=== PATIENT | female | born 1985 | race Caucasian/White ===

== ENCOUNTER → 2017-10-06 12:46 | Outpatient (CLI) | payer MEDICAID, SELFPAY ==
[2017-10-06 13:38] LABS: HCT 30.4 % (36.0-46.0); Mean Corp. HGB Concentration 32.9 g/dL (32.0-36.0); Mean Corpuscular Hemoglobin 31.9 pg (27.0-33.0); Mean Corpuscular Volume 97.1 fL (80-95); Mean Platelet Volume 8.9 fL (8.0-11.0); Platelet Count 230 x1000/uL (130-400); RBC 3.13 m/cumm (4.00-5.20); RBC Distribution Width 13.2 % (11.7-14.6)
[2017-10-06 13:54] LABS: Glucose,1 Hr (Glucola) 83 mg/dL (80-140)
[2017-10-06 15:48] LABS: ALT 24 U/L (12-78); AST 13 U/L (15-37); Albumin 2.7 g/dL (3.4-5.0); Alkaline Phosphatase 74 U/L (46-116); Bilirubin, Direct 0.07 mg/dL (0.00-0.20); Bilirubin, Total 0.1 mg/dL (0.2-1.0); Total Protein 6.7 g/dL (6.4-8.2)
[2017-10-12 17:05] LABS: Result Summary NEGATIVE; Specimen WB Whole Blood
== END ==
PROVIDERS: Visit Provider Advanced Practice Midwife
DX: Z34.03 Encounter for supervision of normal first pregnancy, third trimester (principal); Z3A.28 28 weeks gestation of pregnancy; Z13.228 Encounter for screening for other metabolic disorders; R21 Rash and other nonspecific skin eruption
CPT/HCPCS: 36415; 80076; 82950; 85027; 81220

== ENCOUNTER → 2017-10-08 12:33 | Outpatient (CLI) | payer MEDICAID, SELFPAY ==
[2017-10-08 14:23] LABS: HCT 31.7 % (36.0-46.0); HGB 10.7 g/dL (12.0-15.5); Mean Corp. HGB Concentration 33.8 g/dL (32.0-36.0); Mean Corpuscular Hemoglobin 32.4 pg (27.0-33.0); Mean Corpuscular Volume 96.1 fL (80-95); Mean Platelet Volume 9.6 fL (8.0-11.0); Platelet Count 243 x1000/uL (130-400); RBC Distribution Width 13.2 % (11.7-14.6); White Blood Cell Count 10.39 k/cumm (4.4-10.8)
[2017-10-08 14:30] LABS: ALT 26 U/L (12-78); AST 16 U/L (15-37); Albumin 2.9 g/dL (3.4-5.0); Alkaline Phosphatase 85 U/L (46-116); Bilirubin, Direct 0.09 mg/dL (0.00-0.20); Bilirubin, Total 0.2 mg/dL (0.2-1.0); Total Protein 6.6 g/dL (6.4-8.2)
[2017-10-09 17:22] LABS: Bile Acids, Total 2 mcmol/L (<=10)
== END ==
PROVIDERS: Visit Provider Advanced Practice Midwife
DX: R21 Rash and other nonspecific skin eruption (principal)
CPT/HCPCS: 36415; 80076; 85027; 82239

== ENCOUNTER 2017-12-02 10:01 | Outpatient (CLI) | payer MEDICAID, SELFPAY | END 2017-12-02 10:21 | PROVIDERS: Visit Provider Advanced Practice Midwife | DX: O76 Abnormality in fetal heart rate and rhythm complicating labor and delivery (principal); Z3A.35 35 weeks gestation of pregnancy | CPT/HCPCS: 59025 ==

== ENCOUNTER 2017-12-02 11:48 | Outpatient (REF) | payer MEDICAID, SELFPAY | END 2017-12-02 12:08 | LOC: LBN 11:48 | PROVIDERS: Visit Provider Advanced Practice Midwife | DX: Z34.93 Encounter for supervision of normal pregnancy, unspecified, third trimester (principal); Z36.85 Encounter for antenatal screening for Streptococcus B | CPT/HCPCS: 87081 ==

== ENCOUNTER 2017-12-28 09:15 | Outpatient (REF) | payer MEDICAID, SELFPAY ==
[2017-12-28 13:12] LABS: PROTEIN 69.1 mg/dL (0.0-11.9)
[2017-12-28 13:40] LABS: TOTAL PROTEIN,URINE TIMED 380.1 mg/24hr (0.0-149.1); Total Volume 550 ml
== END 2017-12-28 09:35 ==
LOC: LBN 09:15
PROVIDERS: Visit Provider Nurse Practitioner
DX: Z34.93 Encounter for supervision of normal pregnancy, unspecified, third trimester (principal)
CPT/HCPCS: 81050; 84155

== ENCOUNTER 2017-12-31 16:44 | Observation (INO) | payer MEDICAID, SELFPAY ==
[2017-12-31 15:06] LABS: HCT 33.5 % (36.0-46.0); HGB 10.9 g/dL (12.0-15.5); Mean Corp. HGB Concentration 32.5 g/dL (32.0-36.0); Mean Corpuscular Hemoglobin 29.9 pg (27.0-33.0); Mean Platelet Volume 10.5 fL (8.0-11.0); Platelet Count 179 x1000/uL (130-400); RBC 3.64 m/cumm (4.00-5.20); RBC Distribution Width 14.3 % (11.7-14.6); White Blood Cell Count 10.45 k/cumm (4.4-10.8)
[2017-12-31 15:14] LABS: Uric Acid 5.5 mg/dL (2.6-6.0)
[2017-12-31 15:17] LABS: ALT 12 U/L (12-78); AST 12 U/L (15-37); Albumin 2.5 g/dL (3.4-5.0); Alkaline Phosphatase 163 U/L (46-116); Bilirubin, Direct 0.08 mg/dL (0.00-0.20); Bilirubin, Total 0.2 mg/dL (0.2-1.0); Total Protein 6.4 g/dL (6.4-8.2)
[2017-12-31 16:21] LABS: CREATININE 0.91 mg/dL (0.55-1.02)
[2017-12-31] MEDS: Normal Saline Flush 10 ML SYR (17:25)
[2018-01-01 01:48] LABS: COMMENT (LAB VIEW ONLY) 232.41 mg/dL; PROTEIN 114.4 mg/dL; Prot/Crea Ur Ratio 0.49
== END 2018-01-01 11:28 | disposition home or self-care (01) ==
PROVIDERS: Admitting Provider Advanced Practice Midwife; Visit Provider Advanced Practice Midwife
DX: O12.23 Gestational edema with proteinuria, third trimester (principal); Z3A.39 39 weeks gestation of pregnancy; O99.013 Anemia complicating pregnancy, third trimester; D64.9 Anemia, unspecified
CPT/HCPCS: 80076; 85027; 86850; 86900; 86901; 59025; 59200; 82565; 84156; 84550; G0378

== ENCOUNTER 2018-01-01 20:36 | Observation (INO) | payer MEDICAID, SELFPAY | END 2018-01-02 00:13 | disposition home or self-care (01) | PROVIDERS: Admitting Provider Advanced Practice Midwife; Visit Provider Advanced Practice Midwife | DX: O12.23 Gestational edema with proteinuria, third trimester (principal); Z3A.40 40 weeks gestation of pregnancy; O99.013 Anemia complicating pregnancy, third trimester; D64.9 Anemia, unspecified | CPT/HCPCS: 76815; 76818; 59025; 59200; G0378 ==

== ENCOUNTER 2018-01-02 18:14 | Observation (INO) | payer MEDICAID, SELFPAY ==
[2018-01-02] MEDS: Lactated Ringers 1,000 ML 1000 ML IV (20:31)
== END 2018-01-02 23:00 | disposition home or self-care (01) ==
LOC: OBS 01-04 11:47
PROVIDERS: Admitting Provider Advanced Practice Midwife; Visit Provider Advanced Practice Midwife
DX: O12.23 Gestational edema with proteinuria, third trimester (principal); Z3A.40 40 weeks gestation of pregnancy; O99.013 Anemia complicating pregnancy, third trimester; O99.820 Streptococcus B carrier state complicating pregnancy; D64.9 Anemia, unspecified
CPT/HCPCS: 59200; G0378

== ENCOUNTER 2018-01-03 03:33 | Inpatient (IN) | payer MEDICAID, SELFPAY ==
[2018-01-03] MEDS: Normal Saline Flush 10 ML SYR IVP ×2 (04:00→15:53)
[2018-01-03 04:21] LABS: HCT 34.6 % (36.0-46.0); HGB 11.3 g/dL (12.0-15.5); Mean Corp. HGB Concentration 32.7 g/dL (32.0-36.0); Mean Corpuscular Hemoglobin 29.8 pg (27.0-33.0); Mean Corpuscular Volume 91.3 fL (80-95); Mean Platelet Volume 10.5 fL (8.0-11.0); Platelet Count 181 x1000/uL (130-400); RBC 3.79 m/cumm (4.00-5.20); RBC Distribution Width 14.4 % (11.7-14.6)
[2018-01-03] MEDS: Normal Saline 500 ML 30 ML IV (04:26)
[2018-01-03] MEDS: Lactated Ringers 1,000 ML 300 ML IV (07:00)
[2018-01-03] MEDS: Acetaminophen 325 MG TAB 650 MG PO ×2 (10:32→17:32)
[2018-01-03] MEDS: Ibuprofen 600 MG TAB PO ×2 (10:33→17:31)
[2018-01-03] MEDS: Hamamelis Leaf/Glycerin 100 EACH BOX PR (15:52)
[2018-01-04] MEDS: Acetaminophen 325 MG TAB 650 MG PO ×3 (01:33→17:36)
[2018-01-04] MEDS: Ibuprofen 600 MG TAB PO ×3 (01:34→17:35)
[2018-01-04 07:47] LABS: HCT 27.9 % (36.0-46.0); HGB 8.7 g/dL (12.0-15.5); Mean Corp. HGB Concentration 31.2 g/dL (32.0-36.0); Mean Corpuscular Hemoglobin 29.4 pg (27.0-33.0); Mean Corpuscular Volume 94.3 fL (80-95); Mean Platelet Volume 10.5 fL (8.0-11.0); Platelet Count 160 x1000/uL (130-400); RBC 2.96 m/cumm (4.00-5.20); RBC Distribution Width 14.1 % (11.7-14.6); White Blood Cell Count 10.41 k/cumm (4.4-10.8)
[2018-01-04] MEDS: oxyCODONE 5 mg/Acetaminophen 325 mg TAB 1 TAB PO (20:52)
[2018-01-05] MEDS: Acetaminophen 325 MG TAB 650 MG PO (00:41)
[2018-01-05] MEDS: oxyCODONE 5 mg/Acetaminophen 325 mg TAB 1 TAB PO ×2 (03:35→11:36)
[2018-01-05] MEDS: Ibuprofen 600 MG TAB PO (03:35)
== END 2018-01-05 14:00 | disposition home or self-care (01) | DRG 807 ==
PROVIDERS: Admitting Provider Advanced Practice Midwife; Visit Provider Advanced Practice Midwife
DX: O12.23 Gestational edema with proteinuria, third trimester (principal); Z37.0 Single live birth; O48.0 Post-term pregnancy; Z3A.40 40 weeks gestation of pregnancy; O77.0 Labor and delivery complicated by meconium in amniotic fluid; O75.89 Other specified complications of labor and delivery; O99.824 Streptococcus B carrier state complicating childbirth; R11.10 Vomiting, unspecified; O76 Abnormality in fetal heart rate and rhythm complicating labor and delivery; O70.1 Second degree perineal laceration during delivery; O69.3XX0 Labor and delivery complicated by short cord, not applicable or unspecified
CPT/HCPCS: 85027; 86850; 86900; 86901; J1050; J2540

== ENCOUNTER 2018-09-26 17:39 | Emergency (ER) | payer MEDICAID, SELFPAY ==
[2018-09-26 17:48] VITALS: BP 140/81; PULSE 86; RESP 16; TEMP 36.8; O2SAT 99
--- NOTE | 2018-09-26 18:13 | W.ED.GENAD ---
Discharge Plan Disposition Patient Disposition: HOME Condition: Fair Discharge Details Chief Complaint: DentalOral Clinical Impression: Dental infection Primary Care Provider: Bette,Local ED Provider: Zoë Padilla Home Meds and New Rx's Prescriptions: New penicillin V potassium 500 mg tablet 500 mg PO QID Qty: 22 RF: 0 Continued ferrous sulfate [Iron (ferrous sulfate)] 325 mg (65 mg iron) tablet 325 mg PO TID RF: 0 PNV cmb#95-ferrous fumarate-FA [] 1 EACH tablet 1 ea PO DAILY RF: 0 pantoprazole [Protonix] 20 MG tablet,delayed release (DR/EC) 20 mg PO DAILY MDD 20 MG Qty: 90 RF: 0 docusate sodium [Colace] 100 MG capsule 100 mg PO BID Qty: 100 RF: 0 Discharge Instructions Instructions: Penicillin V (By mouth), Dental Abscess (ED) Additional Instructions: Encourage hydration. Continue with tylenol and/or motrin as needed for discomfort. Please take Penicillin as prescribed. Even if symptoms improve, please take the entire course. You will need follow up with a dentist, please call to schedule appointment. Attached is a list of local dentists. If you develop fevers/chills, increased pain, swelling or other new/worsening symptoms please seek care urgently once again. Discharge Data Discharge Date/Time-TO BE ENTERED AT DEPARTURE: 09/26/18 18:40 Medical Decision Making Patient is a 33 year old female presenting today with c/c of right upper dental pain x 3 days. States that she fractured the affected tooth several weeks ago. Another piece came off 3 days ago and since then the pain has continued to increase. Denies fevers/chills. Pain worse with eating. She has no constitutional symptoms. No evidence of abscess on exam. She is tender along the buccal side of the #3 tooth, this area appears swollen but no focal area of swelling or fluctuance. Patient started on Penicillin. Given dosing here. Encouraged hydration. She does not have a dentiist, advised that she needs f/u for definitive care. She will call tomorrow. Given return precautions. All questions and concerns were addressed, she is in agreement iwth this plan. HPI General Mode of arrival: ambulatory. Date/Time Provider Initiated Documentation: 09/26/18 18:10. Limitations to Documentation: no limitations. Information obtained by: patient and RN notes reviewed. History of Present Illness 33 year old F presents to the emergency department with the chief complaint of right upper dental pain, described as severe, with intensity rated at 9. Quality is described as stabbing, and is localized to the mouth. Patient reports no radiation. Patient started experiencing this day(s) (3) and it has been constant. No relieving factors improve symptom(s), Eating worsens symptoms . Patient notes no other symptoms.. Patient did receive the following treatments prior to arrival, other (tylenol, orajel) Related Data Home Medications Medication Instructions Recorded Confirmed PNV cmb#95-ferrous fumarate-FA 1 ea PO DAILY 05/28/17 12/31/17 [] docusate sodium [Colace] 100 mg PO BID #100 tab-cap 10/06/17 12/31/17 pantoprazole [Protonix] 20 mg PO DAILY #90 tab-cap MDD 20 10/06/17 12/31/17 MG ferrous sulfate 325 mg (65 mg 325 mg PO TID tab 12/02/17 12/31/17 iron) tablet penicillin V potassium 500 mg PO QID #22 tab 09/26/18 Previous Rx's Medication Instructions Recorded docusate sodium [Colace] 100 mg PO BID #100 tab-cap 10/06/17 pantoprazole [Protonix] 20 mg PO DAILY #90 tab-cap MDD 20 10/06/17 MG penicillin V potassium 500 mg PO QID #22 tab 09/26/18 Allergies Allergy/AdvReac Type Severity Reaction Status Date / Time No Known Allergies Allergy Unverified 12/24/17 13:05 General Stated Complaint: DentalOral TERESITA: 4 Review of Systems Constitutional Reports as per HPI, Denies chills, Denies fatigue, Denies fever(s), Denies headache(s) and Denies poor appetite Eyes Denies change in vision and Denies irritation ENT Reports as per HPI, Reports dental pain, Denies dysphagia, Denies dizziness, Denies dry mouth, Denies ear discharge, Denies otalgia, Reports facial pain, Denies headache(s), Denies hoarseness, Denies lip swelling, Denies nasal congestion, Denies odynophagia and Denies sore throat Cardiovascular Reports as per HPI and Denies chest pain Respiratory Reports as per HPI and Denies cough Gastrointestinal Reports as per HPI, Denies dysphagia, Denies nausea, Denies odynophagia and Denies vomiting Integumentary/Breasts Reports as per HPI, Denies erythema, Denies rash and Denies skin pain Neurologic Reports as per HPI, Denies dizziness and Denies headache(s) Endocrine Denies fatigue Allergic/Immunologic Denies lip swelling [facility], [facility] Social History Smoking/Tobacco Use Status: Former Tobacco Use Alcohol Intake: current Alcohol Intake frequency: a few times a month Details: monthly or less (prior to knowledge of ) Drug use: Never Substance use type: does not use Adopted: No Foster care: No Household members: significant other Number of Children: 0 current occupation: thermal imaging Pets and animals: Yes (1 dog) Pets and animals: dog(s) What type of physical activity do you participate in: none Special preston needs: No Seatbelt use: always Helmet use: Yes Drive intox or ride w/intox reefer truck driver: No Water heater temp set <120 deg: No Working smoke detector in home: No (pt. encouraged to contact [employer] for info re smoke detectors) Fire extinguisher in home: No Carbon monox detector in home: No Firearms in home: No Do you feel safe at home: Yes Do you feel safe in your relationship?: Yes Victim of physical abuse: No Victim of emotional abuse: No Victim of sexual abuse: No History History 1 Para 1 Hx # Term Pregnancies 1 Multiple births Hx # Pregnancies Ectopic pregnancies AB induced Hx Number of Living Children 1 AB spontaneous Exam Const General: cooperative, healthy appearing, comfortable, no acute distress, well developed and well groomed Nutritional Appearance: average body habitus and well nourished Orientation: alert and awake [facility] Head: normal to inspection, normocephalic and atraumatic Ears: hearing grossly normal bilaterally, external ears normal and TM's normal bilaterally General nose exam: external nose normal and nares normal Face and sinus: normal facial exam, sinuses nontender and face symmetric Mouth: oral mucosae normal, lip normal, tongue normal, salivary ducts normal and oropharynx normal Teeth and gingiva: abnormal gingiva (patient has swelling of the gingiva near the #3 tooth, no fluctuance), abnormal tooth or associated gingiva (fractured #3 tooth) and fair dentition Throat: posterior oropharynx normal, tonsils normal and uvula midline Eyes General: appearance normal, both eyes and all related structures Neck Neck: normal visual inspection, full ROM, no lymphadenopathy, supple and no anterior neck swelling Resp Effort & Inspection: normal respiratory effort, able to speak in complete sentences and no respiratory distress Auscultation: clear to auscultation bilaterally, no rales, no rhonchi and no wheezes Cardio Rate: regular rate Rhythm: regular rhythm Heart Sounds: S1 normal and S2 normal Skin General skin exam: no rashes or lesions noted Trauma: no lacerations or abrasions Neuro General: alert and awake Cognition: normal cognition Speech: speech normal Gait: normal gait Psych Appearance: grossly normal and well kempt Mental Status: mental status grossly normal Speech and Movement: speech and movement normal Course Vital Signs Temperature 36.8 C 09/26/18 17:48 Pulse 86 09/26/18 17:48 Respiratory Rate 16 09/26/18 17:48 Blood Pressure 140/81 09/26/18 17:48 Pulse Oximetry 99 09/26/18 17:48 Temperature 36.8 C 09/26/18 17:48 Temperature Source Temporal Artery Scan 09/26/18 17:48 Pulse 86 09/26/18 17:48 Respiratory Rate 16 09/26/18 17:48 Respiratory Effort 09/26/18 17:51 Blood Pressure 140/81 09/26/18 17:48 Blood Pressure Position Sitting 09/26/18 17:48 Pulse Oximetry 99 09/26/18 17:48 Oxygen Delivery Method Room Air 09/26/18 17:48 Oxygen Flow Rate 0 09/26/18 17:48 Pain Level 9 09/26/18 17:51
[2018-09-26] MEDS: Ibuprofen 600 MG TAB PO (18:39)
[2018-09-26] MEDS: Penicillin V POTASSIUM 500 MG TAB PO (18:39)
[2018-09-26] MEDS: Penicillin V POTASSIUM 500 MG TAB 1000 MG PO (18:39)
--- NOTE | 2018-09-26 18:39 | NUR.NOTE ---
Nursing Note: PT given 500mg of PCN PO prior to DC and sent with two tablets to take home. Instructed to take every 6 hours until she is able to fill prescription.
== END 2018-09-26 18:40 | disposition home or self-care (01) ==
PROVIDERS: Emergency Provider Physician Assistant
DX: K04.7 Periapical abscess without sinus (principal)
CPT/HCPCS: 81025; 99283

== ENCOUNTER 2018-10-01 11:27 | Outpatient (CLI) | payer MEDICAID, SELFPAY ==
[2018-10-01 12:17] LABS: HCG Quant, Pregnancy < 1 mIU/mL (1-3)
== END 2018-10-01 11:47 ==
PROVIDERS: Visit Provider Advanced Practice Midwife
DX: Z30.9 Encounter for contraceptive management, unspecified (principal)
CPT/HCPCS: 36415; 84702

== ENCOUNTER 2020-05-24 07:58 | Emergency (ER) | payer SELFPAY ==
[2020-05-24 08:07] VITALS: BP 120/75; PULSE 101; RESP 16; TEMP 36.6; O2SAT 97
--- NOTE | 2020-05-24 08:15 | ED.GENADUL_ITS ---
Discharge Plan Disposition Patient Disposition: HOME Condition: Stable Discharge Details Clinical Impression: Bilateral lower abdominal pain Primary Care Provider: Bette,Local ED Provider: Cathie Craig Home Meds and New Rx's Prescriptions: No Action No Known Home Meds RF: 0 Discharge Instructions Instructions: Abdominal Pain (ED) Additional Instructions: Your urine sample had red blood cells and white blood cells in it which may be due to your current menses. You will be notified by the emergency department if your urine culture is positive for bacteria in the next few days which would require treatment with antibiotics. Drink plenty of fluids and get plenty of rest. Alternate tylenol and motrin as needed and directed for pain. Follow-up with [facility] within the next 1-2 weeks. Return to the emergency department with any worsening or new concerning symptoms such as fever, increased pain, persistent vomiting. Stand Alone Forms: Work Release Referrals: [facility] [Provider Group] Discharge Data Discharge Date/Time-TO BE ENTERED AT DEPARTURE: 05/24/20 11:38 Discharge Physician: Cathie Craig Medical Decision Making 33-year-old female with no significant past medical history presents with bilateral lower abdominal pain for the past few days and vomiting x1 this morning. Heart rate mildly elevated but she is afebrile. She appears nontoxic. She has bilateral lower abdominal and suprapubic tenderness. No rebound, guarding or rigidity. Differential diagnosis includes ovarian cyst, ovarian torsion, appendicitis, diverticulitis, UTI, pyelonephritis, gastroenteritis, colitis, menorrhagia, endometriosis, uterine fibroids. We will place an IV, bolus IV fluids, screening labs, urinalysis, urine test, pelvic ultrasound and CT abdomen pelvis. Will give Toradol, Zofran and fluids and reassess. Labs and imaging reviewed and unremarkable. Normal white blood cell count. Normal electrolytes. Urinalysis notes greater than 50 RBCs and 10-20 WBCs with moderate bacteria but negative leukocyte esterase and negative nitrite. Urine culture sent. As patient is on her menses WBCs in urine may be due to large number of RBCs. Pelvic ultrasound and CT abdomen pelvis negative for acute findings. Patient reassessed and states she feels much better and is requesting to go home. She is declining any antiemetics for home. Discussed urinalysis results with patient - as she has no urinary symptoms, is afebrile, with a normal white blood cell count, could hold on antibiotics at this time and await urine culture. Patient is agreeable and she would prefer to wait for urine culture results instead of starting antibiotics at this time. Patient requested work note. Discussed with patient that her symptom presentation could be viral in nature or associated with her menses or another [employer] etiology. She is advised to call [facility]'s wellness to schedule a follow-up appointment for reevaluation. Usual and customary return precautions given prior to discharge. Medical Records Medical records reviewed: Yes I reviewed the patient's medical records. Imaging Data Radiologic Study: Radiologist's impression: US PELVIS TRANSVAGINAL CLINICAL HISTORY: b/l lower abd pain, r/o ovarian torsion, cysts TECHNIQUE: Transabdominal and transvaginal imaging was performed using standard protocol. COMPARISON: No exams were available for comparison FINDINGS: KIDNEYS: Kidneys are symmetric in size. No evidence of renal calculi. No evidence of hydronephrosis. No renal mass or cyst identified. UTERUS: Anteverted. 8.4 x 4.5 x 6 cm Endometrium: 4 millimeters Myometrium: Unremarkable. Cervix: Unremarkable. OVARIES: Right: Cyst or mass: 1.9 centimeter follicle. Left: Cyst or mass: None. DOPPLER: Color: Symmetric and uniform flow to both ovaries. No hyperemia. Duplex: Normal ovarian arterial waveforms visualized. CUL-DE-SAC: Free fluid: None. IMPRESSION: 1. Normal-appearing uterus with endometrial stripe within normal limits. 2. Unremarkable bilateral ovaries. CT ABDOMEN PELVIS W CLINICAL HISTORY: b/l lower abd pain, vomiting. TECHNIQUE: Imaging Protocol: Axial computed tomography images with coronal and sagittal reformatted images were created and reviewed CONTRAST MATERIAL: Intravenous: Omnipaque 350 Contrast volume:100 ml Oral: no COMPARISON: US US PELVIS TRANSVAGINAL from 05/24/2020 FINDINGS: ABDOMEN: Lung Bases: Normal where visualized. Liver: Normal density. No measurable mass. Gallbladder and biliary tract: No radiodense calculus or dilation. Pancreas: Normal density, no abnormal calcifications or inflammatory process. Spleen: Normal. Kidneys: Normal size, contour and axis. No radiodense stones or obstructive uropathy. No masses seen. Small bilateral renal cysts. Circumaortic left renal vein. Adrenal glands: No masses seen. Abdominal Aorta: Abdominal portion non-dilated. PELVIS: Bladder: Symmetric distention, no gross wall thickening. Bowel: Small hiatal hernia. No obstruction or bowel wall thickening. Appendix not visible. Fluid is noted at the base of the cecum which lies directly adjacent to the uterus and right ovary. There is a single diverticulum visible in the junction of the lowers descending and sigmoid colon. Peritoneal cavity: No ascites, collection or mesenteric inflammatory response. Bones: Within normal limits. Reproductive organs: Within normal limits. Dominant follicle is noted on the right ovary. Lymph nodes: Unremarkable. Impression: Unremarkable CT scan of the abdomen and pelvis. Appendix not visualized. Lab Data Lab results reviewed: Yes I reviewed the patient's lab results. Labs: 05/24/20 09:10 Urine - Reflex from Ua Urine Culture - Pending Laboratory Tests Range/Units 05/24/20 05/24/20 05/24/20 08:40 08:40 09:10 WBC (4.4-10.8) 10^3/uL 10.03 RBC (3.93-5.22) 10^6/uL 4.21 Hgb (11.2-15.7) g/dL 12.9 Hct (36.0-46.0) % 40.0 MCV (80-95) fL 95.0 MCH (27.0-33.0) pg 30.6 MCHC (32.0-36.0) % 32.3 RDW (11.7-14.6) % 14.4 Plt Count (130-400) 10^3/uL 258 MPV (8.0-11.0) fL 10.2 Immature Gran % 0.1 Neutrophils % 60.3 Lymphocytes % 29.0 Monocytes % 8.2 Eosinophils % 1.8 Basophils % 0.6 Nucleated RBC % % 0 Absolute Neutrophils (1.2-6.7) 10^3/uL 6.05 Absolute Lymphocytes (1.2-3.4) 10^3/uL 2.91 Absolute Monocytes (0.1-0.8) 10^3/uL 0.82 H Absolute Eosinophils (0.0-0.7) 10^3/uL 0.18 Absolute Basophils (0.0-0.2) 10^3/uL 0.06 Sodium (136-145) mmol/L 139 Potassium (3.5-5.1) mmol/L 3.9 Chloride (98-107) mmol/L 105 Carbon Dioxide (21.0-32.0) mmol/L 24.3 Anion Gap (3-11) mmol/L 9.7 BUN (7-18) mg/dL 15 Creatinine (0.55-1.02) mg/dL 0.9 Estimated GFR/1.73 m2 (mL/min/1.73m2) >= 60.00 Glucose (74-106) mg/dL 93 Calcium (8.5-10.1) mg/dL 8.8 Total Bilirubin (0.2-1.0) mg/dL 0.3 AST (15-37) U/L 12 L ALT (14-59) U/L 19 Alkaline Phosphatase (46-116) U/L 63 Total Protein (6.4-8.2) g/dL 7.3 Albumin (3.4-5.0) g/dL 3.8 Lipase (73-393) U/L 74 Urine Color (Yellow) Brown Urine Clarity (Clear) Cloudy Urine pH (5-8) 5.5 Ur Specific [place] (1.005-1.025) >= 1.030 H Urine Protein (Negative) mg/dL 100 H Urine Ketones (Negative) mg/dL Negative Urine Blood (Negative) Large H Urine Nitrite (Negative) Negative Urine Bilirubin (Negative) Negative Urine Urobilinogen (Up TO 0.2) EU/dL 0.2 Ur Leukocyte Esterase (Negative) Negative Urine RBC (0-2) HPF >50 H Urine WBC (0-5) HPF 10-20 H Ur Epithelial Cells (Negative) HPF Few Urine Crystals (Negative) HPF Negative Urine Bacteria (Negative) HPF Moderate Urine Casts (Negative) LPF Negative Urine Mucus (Negative) Heavy Urine Other (Negative) Negative Ur Culture Indicated? Yes Urine Glucose (Negative) mg/dL Negative HPI General Mode of arrival: ambulatory . Date/Time Provider Initiated Documentation: 05/24/20 08:01 . Limitations to Documentation: no limitations . Information obtained by: patient . HPI Narrative: Patient is a 34-year-old fema le with no significant past medical history presents to the ED with a complaint of lower abdominal pain for the past few days and vomiting x1 this morning. Patient states her pain initially started as intermittent cramping and is now more constant, cramping and also sharp. She denies any radiation of pain. She states the pain is currently 6/10. She states the pain is worse with movement and temporarily relieved with ibuprofen and Tylenol but then returned. She states she vomited one time this morning which was mainly clear liquid and bile at work. She denies any diarrhea and states she had a normal bowel movement this morning. He denies any fever, recent travel, recent known sick contacts, urinary symptoms. She states she has heavy periods at baseline but states her period started 2 days ago to cover than usual. She states she normally has significant cramping with her period but states this is worse. States she usually has 6-7 saturated tampons daily for periods lasting approximately 1 week. She states she has been having 10 saturated tampons during her period starting 2 days ago. She states she [place] and has not seen [facility] wellness. She has been limited vomiting the past for her previous . Related Data Home Medications Medication Instructions Recorded Confirmed Unknown [No Known Home Meds] 05/24/20 05/24/20 Allergies Allergy/AdvReac Type Severity Reaction Status Date / Time No Known Allergies Allergy Unverified 05/24/20 08:10 General Stated Complaint: Abd Prob TERESITA: 3 Review of Systems All systems reviewed & are unremarkable except as noted in HPI and below Constitutional Constitutional: Reports as per HPI, Denies chills and Denies fever(s) Eyes Eyes: Denies blurry vision ENT Ears, Nose, Mouth, and Throat: Denies dizziness, Denies sore throat and Denies throat swelling Cardiovascular Cardiovascular: Denies chest pain and Denies dyspnea Respiratory Respiratory: Denies cough and Denies dyspnea Gastrointestinal Gastrointestinal: Reports abdominal pain, Denies diarrhea and Reports vomiting Genitourinary Genitourinary: Denies hematuria and Denies dysuria Musculoskeletal Musculoskeletal: Denies back pain and Denies numbness Integumentary/Breasts Skin/Breast: Denies lesions and Denies rash Neurologic Neurologic: Denies dizziness, Denies localized weakness and Denies numbness Allergic/Immunologic Allergic/Immunologic: Denies throat swelling [facility] Medical History (Updated 05/24/20 @ 11:02 by Cathie Craig DO) No significant past medical history Surgical History (Updated 05/24/20 @ 08:41 by Cathie Craig DO) No significant past surgical history Social History Smoking/Tobacco Use Status: Former Tobacco Use Smoking risk assessment performed?: Yes Alcohol Intake: current Alcohol Intake frequency: a few times a month Details: monthly or less (prior to knowledge of ) Drug use: Never Substance use type: does not use Adopted: No Foster care: No Household members: significant other Number of Children: 0 current occupation: thermal imaging Pets and animals: Yes (1 dog) Pets and animals: dog(s) What type of physical activity do you participate in: none Special preston needs: No Seatbelt use: always Helmet use: Yes Drive intox or ride w/intox stage driver: No Water heater temp set <120 deg: No Working smoke detector in home: No (pt. encouraged to contact [employer] for info re smoke detectors) Fire extinguisher in home: No Carbon monox detector in home: No Firearms in home: No Do you feel safe at home: Yes Do you feel safe in your relationship?: Yes Victim of physical abuse: No Victim of emotional abuse: No Victim of sexual abuse: No History History 1 Para 1 Hx # Term Pregnancies 1 Multiple births Hx # Pregnancies Ectopic pregnancies AB induced Hx Number of Living Children 1 AB spontaneous Exam Const General: cooperative, healthy appearing and no acute distress HENMT Head: normal to inspection Face and sinus: normal facial exam Eyes General: appearance normal, both eyes and all related structures EOM: EOM intact bilaterally Neck Neck: normal visual inspection and No submandibular swelling Lymphatic: no lymphadenopathy noted Chest Chest: normal inspection of the chest and no tenderness Resp Effort & Inspection: normal respiratory effort and able to speak in complete sentences Auscultation: clear to auscultation bilaterally Cardio Rate: regular rate Rhythm: regular rhythm GI Inspection: normal to inspection Palpation: soft, not firm, not rigid and tender in the LLQ, in the RLQ and suprapubicly Auscultation: normal bowel sounds Skin General skin exam: no rashes or lesions noted Neuro General: patient alert, patient awake and patient oriented x3 Cognition: normal cognition Speech: speech normal Motor: muscle tone normal throughout Sensory Exam: no sensory deficits noted Extrem General: normal to inspection, full ROM, capillary refill normal, no calf tenderness bilaterally and no edema Psych Appearance: grossly normal Mental Status: mental status grossly normal Speech and Movement: speech and movement normal Affect: normal affect Course Vital Signs Vital signs: Vital Signs Temperature 97.9 F 05/24/20 08:07 Pulse 101 H 05/24/20 08:07 Respiratory Rate 16 05/24/20 08:07 Blood Pressure 120/75 05/24/20 08:07 Pulse Oximetry 97 05/24/20 08:07 Temperature 97.9 F 05/24/20 08:07 Temperature Source Skin 05/24/20 08:07 Pulse 101 H 05/24/20 08:07 Respiratory Rate 16 05/24/20 08:07 Respiratory Effort Non-Labored 05/24/20 08:07 Blood Pressure 120/75 05/24/20 08:07 Blood Pressure Position Sitting 05/24/20 08:07 Pulse Oximetry 97 05/24/20 08:07 Oxygen Delivery Method Room Air 05/24/20 08:07 Oxygen Flow Rate 0 05/24/20 08:07 Pain Level 8 05/24/20 08:07
[2020-05-24] MEDS: Ondansetron 4 MG/2 ML VIAL IVP (08:45)
[2020-05-24] MEDS: Normal Saline 1,000 ML 1000 ML IV (08:45)
[2020-05-24 08:49] LABS: Abs Immature Grans 0.01 10^3/uL (0.0-0.06); Absolute Basophil Count 0.06 10^3/uL (0.0-0.2); Absolute Eosinophil Count 0.18 10^3/uL (0.0-0.7); Absolute Lymphocyte Count 2.91 10^3/uL (1.2-3.4); Absolute Monocyte Count 0.82 10^3/uL (0.1-0.8); Absolute Neutrophil Count 6.05 10^3/uL (1.2-6.7); Basophils % 0.6; Eosinophils % 1.8; HGB 12.9 g/dL (11.2-15.7); Immature Grans % 0.1; MCH 30.6 pg (27.0-33.0); MCHC 32.3 % (32.0-36.0); MPV 10.2 fL (8.0-11.0); Monocytes % 8.2; Neutrophils % 60.3; Nucleated RBC 0 %; Platelet Count 258 10^3/uL (130-400); RBC 4.21 10^6/uL (3.93-5.22); RDW 14.4 % (11.7-14.6); RDW-SD 49.8 fL; WBC 10.03 10^3/uL (4.4-10.8)
[2020-05-24] MEDS: Ketorolac 30 MG/ML VIAL IVP (08:50)
[2020-05-24 09:04] LABS: ALT 19 U/L (14-59); AST 12 U/L (15-37); Albumin 3.8 g/dL (3.4-5.0); Alkaline Phosphatase 63 U/L (46-116); Anion Gap 9.7 mmol/L (3-11); BUN 15 mg/dL (7-18); Bilirubin, Total 0.3 mg/dL (0.2-1.0); CO2 24.3 mmol/L (21.0-32.0); CREATININE 0.9 mg/dL (0.55-1.02); Calcium 8.8 mg/dL (8.5-10.1); Chloride 105 mmol/L (98-107); Glucose 93 mg/dL (74-106); Lipase 74 U/L (73-393); Potassium 3.9 mmol/L (3.5-5.1); Sodium 139 mmol/L (136-145); Total Protein 7.3 g/dL (6.4-8.2)
[2020-05-24 09:29] LABS: Bilirubin Negative (Negative); Blood Large (Negative); Clarity Cloudy (Clear); Glucose Negative (Negative); Ketones Negative (Negative); Leukocyte Esterase Negative (Negative); Nitrite Negative (Negative); Specific Gravity >= 1.030 (1.005-1.025); Urobilinogen 0.2 EU/dL (Up TO 0.2); pH 5.5 (5-8)
[2020-05-24 09:40] LABS: Bacteria Moderate HPF (Negative); C & S Indicated? Yes; Casts Negative LPF (Negative); Crystals Negative HPF (Negative); Epithelial Cells Few HPF (Negative); Mucus Heavy (Negative); Other Cells Negative (Negative); RBC >50 HPF (0-2)
--- NOTE | 2020-05-24 10:45 | DI.CT_ITS ---
EXAM: CT ABDOMEN PELVIS W CLINICAL HISTORY: b/l lower abd pain, vomiting. TECHNIQUE: Imaging Protocol: Axial computed tomography images with coronal and sagittal reformatted images were created and reviewed CONTRAST MATERIAL: Intravenous: Omnipaque 350 Contrast volume:100 ml Oral: no COMPARISON: US US PELVIS TRANSVAGINAL from 05/24/2020 FINDINGS: ABDOMEN: Lung Bases: Normal where visualized. Liver: Normal density. No measurable mass. Gallbladder and biliary tract: No radiodense calculus or dilation. Pancreas: Normal density, no abnormal calcifications or inflammatory process. Spleen: Normal. Kidneys: Normal size, contour and axis. No radiodense stones or obstructive uropathy. No masses seen. Small bilateral renal cysts. Circumaortic left renal vein. Adrenal glands: No masses seen. Abdominal Aorta: Abdominal portion non-dilated. PELVIS: Bladder: Symmetric distention, no gross wall thickening. Bowel: Small hiatal hernia. No obstruction or bowel wall thickening. Appendix not visible. Fluid is noted at the base of the cecum which lies directly adjacent to the uterus and right ovary. There is a single diverticulum visible in the junction of the lowers descending and sigmoid colon. Peritoneal cavity: No ascites, collection or mesenteric inflammatory response. Bones: Within normal limits. Reproductive organs: Within normal limits. Dominant follicle is noted on the right ovary. Lymph nodes: Unremarkable. Impression: Unremarkable CT scan of the abdomen and pelvis. Appendix not visualized. RADIATION DOSE DELIVERED: 1,142.29mGy.cm Total DLP DATA REPOSITORY: All CT scans at this facility are submitted to the National Radiology Data Registry (NRDR) Dose Index Registry (DIR) with the [employer] (ACR). RADIATION OPTIMIZATION: All CT scans at this facility use at least one of these dose optimization te chniques: automated exposure control; mA and/or kV adjustment per patient size (includes targeted exa ms where dose is matched to clinical indication); or iterative reconstruction.
[2020-05-24 11:00] VITALS: BP 113/67; PULSE 65; RESP 20; TEMP 36.5; O2SAT 99
[2020-05-24 11:40] VITALS: BP 113/67; PULSE 65; RESP 20; TEMP 36.5; O2SAT 99
== END 2020-05-24 11:38 | disposition home or self-care (01) ==
PROVIDERS: Emergency Provider Physician Assistant
DX: R10.30 Lower abdominal pain, unspecified (principal); R11.2 Nausea with vomiting, unspecified
CPT/HCPCS: 36415; 80053; 81025; 83690; 96361; 96374; 96375; 99285; 74177; 76830; 76856; 81003; 81015; 85025; 87086; 99284; J1885; J2405